=== PATIENT | female | born 2000 | race Caucasian/White ===

== ENCOUNTER 2024-01-31 13:47 | Outpatient (CLI) | payer BC | END 2024-01-31 13:48 | disposition home or self-care (01) | LOC: CSHRAD 13:47 | PROVIDERS: ATTEND Dermatology Dermatopathology | DX: M33.13 Other dermatomyositis without myopathy (principal); R13.19 Other dysphagia; K21.9 Gastro-esophageal reflux disease without esophagitis | CPT/HCPCS: 74220 ==